=== PATIENT | female | born 1975 | race Caucasian/White ===

== ENCOUNTER 2019-03-18 09:20 | Emergency (ER) | payer BC ==
--- NOTE | 2019-03-18 10:33 | EDM.PDOC ---
ED HPI GENERAL MEDICAL PROBLEM - General Chief Complaint: Cardiovascular Problem Stated Complaint: HEART HAD BEEN BEETING FAST Time Seen by Provider: 03/18/19 10:23 Source of Information: Reports: Patient, Family, RN Notes Reviewed History Limitations: Reports: No Limitations - History of Present Illness INITIAL COMMENTS - FREE TEXT/NARRATIVE: 43-year-old female presents to the emergency department today complaint of palpitations, she states for the last 3 days she is awoke in the morning with flushing felt an irregular heartbeat. She has been working with her civil engineering assistant to help maintain a blood pressure was on the combination carvedilol and losartan, the losartan was recently stopped and the carvedilol was increased 5 days prior. No chest pain no nausea vomiting no shortness of breath - Related Data Allergies Allergy/AdvReac Type Severity Reaction Status Date / Time amoxicillin Allergy Rash Verified 03/18/19 09:51 metoprolol Allergy Anxiety Verified 03/18/19 09:51 Home Meds: Home Meds Carvedilol 1 tab PO BID 03/18/19 [History] Past Medical History Cardiovascular History: Reports: Hypertension - Past Surgical History Female Surgical History: Reports: Section Social & Family History - Tobacco Use Smoking Status *Q: Never Smoker ED ROS GENERAL - Review of Systems Review Of Systems: See Below Constitutional: Reports: No Symptoms HEENT: Reports: No Symptoms Respiratory: Reports: No Symptoms Cardiovascular: Reports: Palpitations GI/Abdominal: Reports: No Symptoms ED EXAM, GENERAL - Physical Exam Exam: See Below Exam Limited By: No Limitations General Appearance: Alert, WD/WN, No Apparent Distress Neck: Normal Inspection, Supple, Non-Tender, Full Range of Motion Respiratory/Chest: No Respiratory Distress, Lungs Clear, Normal Breath Sounds, No Accessory Muscle Use, Chest Non-Tender Cardiovascular: Regular Rate, Rhythm, No Murmur Course - Vital Signs Last Recorded V/S: Last Vital Signs Temp 96.4 F 03/18/19 10:10 Pulse 67 03/18/19 10:10 Resp 15 03/18/19 10:10 BP 136/91 H 03/18/19 10:10 Pulse Ox 100 03/18/19 10:10 - Orders/Labs/Meds Orders: Active Orders 24 hr Category Date Time Status Cardiac Monitoring [RC] .As Directed Care 03/18/19 10:30 Active EKG Documentation Completion [RC] ASDIRECTED Care 03/18/19 09:52 Active EKG 12 Lead [EK] Stat Ther 03/18/19 09:51 Ordered Labs: Laboratory Tests 03/18/19 03/18/19 Range/Units 10:40 10:40 WBC 8.9 (4.5-11.0) K/uL RBC 4.38 (3.30-5.50) M/uL Hgb 11.8 L (12.0-15.0) g/dL Hct 37.1 (36.0-48.0) % MCV 85 (80-98) fL MCH 27 (27-31) pg MCHC 32 (32-36) % Plt Count 334 (150-400) K/uL Neut % (Auto) 71 H (36-66) % Lymph % (Auto) 19 L (24-44) % Rice % (Auto) 8 H (2-6) % Eos % (Auto) 2 (2-4) % Baso % (Auto) 0 (0-1) % Sodium 140 (140-148) mmol/L Potassium 4.2 (3.6-5.2) mmol/L Chloride 106 (100-108) mmol/L Carbon Dioxide 28 (21-32) mmol/L Anion Gap 6.1 (5.0-14.0) mmol/L BUN 10 (7-18) mg/dL Creatinine 0.7 (0.6-1.0) mg/dL Est Cr Clr Drug Dosing 90.41 mL/min Estimated GFR (MDRD) > 60 (>60) Glucose 99 (74-106) mg/dL Calcium 8.8 (8.5-10.1) mg/dL Troponin I < 0.017 (0.000-0.056) ng/mL Departure - Departure Time of Disposition: 11:15 Disposition: Home, Self-Care 01 Condition: Fair Clinical Impression: Palpitations Instructions: Palpitations, Palpitations, [id number] Referrals: PCP,None [Primary Care Provider] - Forms: ED Department Discharge Additional Instructions: Please follow-up with your primary care provider upon return, call or return to the emergency department symptoms - My Orders Last 24 Hours: My Active Orders 03/18/19 09:51 EKG 12 Lead [EK] Stat 03/18/19 09:52 EKG Documentation Completion [RC] ASDIRECTED 03/18/19 10:30 Cardiac Monitoring [RC] .As Directed - Assessment/Plan Last 24 Hours: My Active Orders 03/18/19 09:51 EKG 12 Lead [EK] Stat 03/18/19 09:52 EKG Documentation Completion [RC] ASDIRECTED 03/18/19 10:30 Cardiac Monitoring [RC] .As Directed Plan: Assessment Acuity = acute Site and laterality = palpitations Etiology = unclear etiology suspicious for relationship to carvedilol dose increase 5 days prior Manifestations = none Location of injury = Home Lab values = CBC, BMP, troponin within normal limits EKG demonstrates a sinus bradycardia 46 Plan Did review lab work EKG results with her she is to follow up with her primary care upon returning home reevaluate her dose increase of carvedilol This note was dictated using [employer] voice recognition software please call with any questions on syntax or grammar.
== END 2019-03-18 11:18 | disposition home or self-care (01) ==
LOC: JP.ED 09:20
DX: R00.2 Palpitations (principal); I10 Essential (primary) hypertension; Z88.1 Allergy status to other antibiotic agents; Z88.8 Allergy status to other drugs, medicaments and biological substances
CPT/HCPCS: 36415; 80048; 84484; 85025; 93005; 99284-25